=== PATIENT | male | born 1985 | race Caucasian/White ===

== ENCOUNTER → 2016-12-01 | Outpatient (CLI) | payer BC ==
[2016-12-01 08:39] LABS: FREE T4 (FREE THYROXINE) 1.55 ng/dL (0.93-1.71)
== END ==
LOC: LAB 06:21
PROVIDERS: ATTEND Family Medicine
DX: E03.9 Hypothyroidism, unspecified (principal)
CPT/HCPCS: 36415; 84439; 84443